=== PATIENT | female | born 1985 | race Caucasian/White ===

== ENCOUNTER 2016-10-24 19:11 | Outpatient (CLI) | payer OTHER | END 2016-10-24 22:24 | disposition home or self-care (01) | LOC: GENOP 19:11 | DX: O42.913 Preterm premature rupture of membranes, unspecified as to length of time between rupture and onset of labor, third trimester (principal); O26.893 Other specified pregnancy related conditions, third trimester; R10.9 Unspecified abdominal pain; R10.2 Pelvic and perineal pain; Z3A.35 35 weeks gestation of pregnancy | CPT/HCPCS: 81001; G0463 ==

== ENCOUNTER 2016-11-13 12:12 | Inpatient (IN) | payer OTHER ==
[~2016-11-13] VITALS: Ht 172.7 cm; Wt 99.3 kg
[2016-11-13 14:29] LABS: HEMOGLOBIN 11.2 gm/dl (12.3-15.3); RED BLOOD COUNT 3.61 M/UL (4.00-5.10); WHITE BLOOD COUNT 11.8 K/UL (4.5-11.0)
[2016-11-14 03:06] LABS: HEMOGLOBIN 11.4 gm/dl (12.3-15.3)
[2016-11-15] MEDS ORDERED: COLACE 100MG C100 MG PO (09:31)
== END 2016-11-15 11:50 | disposition home or self-care (01) | DRG 765 ==
LOC: GENOP 12:12 → OB 14:10
PROVIDERS: ADMIT Obstetrics & Gynecology
PROC: 10D00Z1 Extraction of Products of Conception, Low, Open Approach (ICD-10-PCS; principal; 2016-11-13 15:18)
DX: O32.1XX0 Maternal care for breech presentation, not applicable or unspecified (principal); O60.14X0 Preterm labor third trimester with preterm delivery third trimester, not applicable or unspecified; O41.03X0 Oligohydramnios, third trimester, not applicable or unspecified; O10.02 Pre-existing essential hypertension complicating childbirth; O99.344 Other mental disorders complicating childbirth; Z3A.37 37 weeks gestation of pregnancy; Z37.0 Single live birth; F41.9 Anxiety disorder, unspecified
CPT/HCPCS: 36415; 81001; 82800; 85014; 85018; 85025; 90715; C9113; J0690; J2300; J2550; J2590; J2765; J3430; J7120